=== PATIENT | female | born 1985 | race Caucasian/White ===

== ENCOUNTER 2017-09-17 19:27 | Emergency (ER) | payer OTHER ==
[~2017-09-17] VITALS: Ht 162.6 cm; Wt 54.4 kg
[~2017-09-17 19:27] MED LIST: ACET325; ALBU4 PO; ALBU90OI; ALBUTEROL; AMYLIPPRO; ASCO500; ATEN25 PO; AZIT250 PO; AZIT500 PO; Bacid1 EACH PO; Biotin1 MG PO; CALCA500CH PO; CALCIUM; CALCIUM + VIT1 EACH PO; CAYSTON75 MG/1 ML IH; CLEOCIN; CYAN500 PO; CYCL10 PO; Cellcept500 MG PO; DOC250 PO; DOCU100 PO; DORN1IH; DORN1IH IH; DORN1IH INH; DOXY100 PO; ERGO50000 PO; FERR325 PO; FLUC200 PO; FLUSAL1005; FLUSAL5005; FLUSAL5005 IH; FOLI1 PO; FOLIC ACID PO; Golytely Packe1 EACH PO; HYPERTONIC SALINE; IBUP400 PO; INSLI100I; INSLI75/25 SC; KETO10 PO; LAVAP17G PT; LEVFLO500; LINE600 PO; LORA10 PO; LORA10ER; MAGNESIUM250 MG PO; MAGOXI400 PO; MELA3; MELA3 PO; METO25 PO; MICO100S TOP; MIRALAX; MOMENI; MUPI2TC; MYCO250 PO; OMEP20ER PO; OMEPRAZOLE MAGN20 MG; ONDA4; OXYC15ER PO; One Daily1 EAC3 PO; PANT20; PANT40 PO; PRED10 PO; PROM25 PO; Prozac20 MG PO; Prozac40 MG PO; SIME80CH PO; SODCHL.65S; SODCHL2SO INH; SULTRIDS; SULTRISS PO; TACR1 PO; THIA100 PO; TOBI; TOCO400 PO; VALGANCICLOVIR450 MG PO; VANCOMYCIN IV; VIOKACE 20,8801 EACH; Ventolin Sy2 MG/5 ML IH; Vitamin B Comple1 EA; XYZAL; XYZAL5 MG PO; ZENPEP; ZENPEP DR 20,01 EACH PO; ZINC; ZINC220 PO; ZOLP5 PO; Zofran Odt4 MG SL; [UNRECOGNIZED DRUG - OTHER]; [UNRECOGNIZED DRUG - OTHER]; [UNRECOGNIZED DRUG - OTHER]; [UNRECOGNIZED DRUG - OTHER]; [UNRECOGNIZED DRUG - OTHER]
== END 2017-09-17 21:03 | disposition home or self-care (01) ==
LOC: ER 19:27
DX: Z01.810 Encounter for preprocedural cardiovascular examination (principal); Z88.0 Allergy status to penicillin; Z88.8 Allergy status to other drugs, medicaments and biological substances; Z79.899 Other long term (current) drug therapy; Z79.52 Long term (current) use of systemic steroids; Z79.2 Long term (current) use of antibiotics; E11.9 Type 2 diabetes mellitus without complications
CPT/HCPCS: 93005; 93010; 99283

== ENCOUNTER 2017-09-18 07:00 | Day surgery (SDC) | payer OTHER ==
[~2017-09-18] VITALS: Ht 162.6 cm; Wt 63.4 kg
== END 2017-09-18 12:10 | disposition home or self-care (01) ==
LOC: ORSCSDS 07:00
PROVIDERS: Otolaryngology
PROC: 09CW8ZZ Extirpation of Matter from Right Sphenoid Sinus, Via Natural or Artificial Opening Endoscopic (ICD-10-PCS; principal; 2017-09-18 08:15)
PROC: 8E09XBZ Computer Assisted Procedure of Head and Neck Region (ICD-10-PCS; principal; 2017-09-18 08:15)
PROC: 09BT8ZZ Excision of Left Frontal Sinus, Via Natural or Artificial Opening Endoscopic (ICD-10-PCS; principal; 2017-09-18 08:15)
DX: J32.1 Chronic frontal sinusitis (principal); E84.0 Cystic fibrosis with pulmonary manifestations; K86.89 Other specified diseases of pancreas; K21.9 Gastro-esophageal reflux disease without esophagitis; F32.9 Major depressive disorder, single episode, unspecified; Z79.899 Other long term (current) drug therapy; Z79.4 Long term (current) use of insulin
CPT/HCPCS: 87070; 87075; 87102; 87106; 87147; 87205; C2625; J0330; J1100; J2250; J2370; J2405; J3010; J3301; J7120

== ENCOUNTER → 2017-12-04 | Outpatient (CLI) | payer OTHER ==
[~2017-12-04] MED LIST changes: +Pravachol20 MG PO; +SIRO1 PO; +ZOLP10 PO
== END | disposition home or self-care (01) ==
LOC: LAB SHORT 16:55 → LAB 16:55 → LAB FUT 12-04 15:00 → EDSTATUS 12-04 15:00
DX: R05 Cough (principal)
CPT/HCPCS: 87252; 87254

== ENCOUNTER 2018-04-24 23:58 | Emergency (ER) | payer OTHER ==
[~2018-04-24] VITALS: Ht 162.6 cm; Wt 64.4 kg
[~2018-04-24 23:58] MED LIST changes: -Pravachol20 MG PO; -SIRO1 PO; -ZOLP10 PO
[2018-04-25] MEDS ORDERED: ZENPEP DR 20,01 EACH PO (01:26)
[2018-04-25] MEDS ORDERED: TACR1 PO (01:27)
[2018-04-25] MEDS ORDERED: Pantoprazole So40 MG PO (01:27)
[2018-04-25] MEDS ORDERED: PRED10 PO (01:27)
[2018-04-25] MEDS ORDERED: MYCO250 PO (01:27)
[2018-04-25] MEDS ORDERED: ZOLP10 PO (01:28)
[2018-04-25] MEDS ORDERED: Prozac20 MG PO (01:28)
[2018-04-25] MEDS ORDERED: SIRO1 PO (01:28)
[2018-04-25] MEDS ORDERED: Pravachol20 MG PO (01:28)
[2018-04-25] MEDS ORDERED: Ativan1 MG PO (03:17)
== END 2018-04-25 06:00 | disposition home or self-care (01) ==
LOC: ER 23:58
DX: L50.0 Allergic urticaria (principal); Z88.0 Allergy status to penicillin; Z88.8 Allergy status to other drugs, medicaments and biological substances; Z91.018 Allergy to other foods; Z79.899 Other long term (current) drug therapy; Z79.52 Long term (current) use of systemic steroids; E11.9 Type 2 diabetes mellitus without complications
CPT/HCPCS: 36415; 96361; 96374; 96375; 96376; 99282-25; J2405; J3490; J7030; Q0163

== ENCOUNTER → 2018-06-08 | Outpatient (CLI) | payer OTHER ==
[~2018-06-08] MED LIST changes: +Ativan1 MG PO; +Pantoprazole So40 MG PO; +Pravachol20 MG PO; +SIRO1 PO; +ZOLP10 PO
== END | disposition home or self-care (01) ==
LOC: PLD 15:51 → LAB SHORT 15:51
DX: D48.5 Neoplasm of uncertain behavior of skin (principal)
CPT/HCPCS: 88305

== ENCOUNTER → 2018-07-05 | Outpatient (CLI) | payer OTHER | END | disposition home or self-care (01) | LOC: LAB SHORT 11:02 → PLD 11:02 | DX: L98.2 Febrile neutrophilic dermatosis [Sweet] (principal); L73.8 Other specified follicular disorders; M54.06 Panniculitis affecting regions of neck and back, lumbar region; L52 Erythema nodosum | CPT/HCPCS: 88305 ==

== ENCOUNTER → 2018-07-05 | Outpatient (CLI) | payer OTHER | END | disposition home or self-care (01) | LOC: LAB 16:26 → LAB SHORT 16:26 | DX: A49.9 Bacterial infection, unspecified (principal) | CPT/HCPCS: 87081 ==

== ENCOUNTER 2018-11-26 06:18 | Day surgery (SDC) | payer OTHER ==
[~2018-11-26] VITALS: Ht 162.6 cm; Wt 68.4 kg
[~2018-11-26 06:18] MED LIST changes: +INSULANPEN SC
[2018-11-26] MEDS ORDERED: DAPS100 PO (07:08)
[2018-11-26] MEDS ORDERED: INSULANPEN SC (07:08)
[2018-11-26] MEDS ORDERED: MYCO250 PO (07:11)
[2018-11-26] MEDS ORDERED: PRED5 PO (07:12)
[2018-11-26] MEDS ORDERED: AZIT250 PO (07:12)
[2018-11-26] MEDS ORDERED: PRAV20 PO (07:12)
[2018-11-26] MEDS ORDERED: HEALTHYLAX17 GM PO (07:13)
[2018-11-26] MEDS ORDERED: MAGOXI400 PO (07:16)
[2018-11-26] MEDS ORDERED: 24HR ALLERGY REL5 MG PO (07:17)
[2018-11-26] MEDS ORDERED: ZENPEP DR 20,01 EACH PO (07:18)
[2018-11-26] MEDS ORDERED: BIOTIN5000 MCG PO (07:22)
[2018-11-26] MEDS ORDERED: ERGO400 PO (07:22)
[2018-11-26] MEDS ORDERED: DOC250 PO (07:25)
[2018-11-26] MEDS ORDERED: TUMS500 MG PO (07:25)
--- NOTE | 2018-11-26 07:27 | NUR ---
11/26/18 0727 Virginia Webb V 1 FAILED IV IN L HAND, 1 FAILED IV IN L FOREARM, 1 FAILED IV IN R HAND.
--- NOTE | 2018-11-26 09:29 | NUR ---
11/26/18 0929 Amparo Singh PATIENT STATES PAIN IS NOW A 5/10 WILL MEDICATED PER ORDERS SEE VS RECORD.
== END 2018-11-26 10:13 | disposition home or self-care (01) ==
LOC: ORSCSDS 06:18
PROVIDERS: Otolaryngology
PROC: 09DU4ZZ Extraction of Right Ethmoid Sinus, Percutaneous Endoscopic Approach (ICD-10-PCS; principal; 2018-11-26 07:30)
PROC: 8E09XBZ Computer Assisted Procedure of Head and Neck Region (ICD-10-PCS; principal; 2018-11-26 07:30)
PROC: 09DV4ZZ Extraction of Left Ethmoid Sinus, Percutaneous Endoscopic Approach (ICD-10-PCS; principal; 2018-11-26 07:30)
DX: J32.8 Other chronic sinusitis (principal); Z94.2 Lung transplant status; E84.0 Cystic fibrosis with pulmonary manifestations; E11.9 Type 2 diabetes mellitus without complications; Z79.899 Other long term (current) drug therapy
CPT/HCPCS: 82947; 87070; 87075; 87205; C2625; J1100; J2250; J2405; J2704; J2710; J3010; J3301; J7120

== ENCOUNTER → 2019-03-29 | Outpatient (CLI) | payer OTHER ==
[~2019-03-29] MED LIST changes: +24HR ALLERGY REL5 MG PO; +BIOTIN5000 MCG PO; +DAPS100 PO; +ERGO400 PO; +HEALTHYLAX17 GM PO; +PRAV20 PO; +PRED5 PO; +TUMS500 MG PO
[2019-03-29 14:06] LABS: Calcium, Urine 7.5 mg/dL (< 17.5); Calcium, Urine Calculation 97.5 mg/24hrs (42.0-353.0)
[2019-03-29 17:42] LABS: Creatinine Urine 92.9 mg/dL (27.00-270.00)
== END ==
LOC: LAB SHORT 11:08 → LAB 11:08
PROVIDERS: Internal Medicine Endocrinology, Diabetes & Metabolism
DX: K90.49 Malabsorption due to intolerance, not elsewhere classified (principal); E83.51 Hypocalcemia
CPT/HCPCS: 81050; 82340; 82570

== ENCOUNTER → 2019-06-13 | Outpatient (CLI) | payer OTHER ==
[2019-06-15 14:07] LABS: HPV 16 Negative (Negative); HPV 18 Negative (Negative); HPV OTHER HR TYPES Positive (Negative)
== END | disposition home or self-care (01) ==
LOC: LAB SHORT 15:54 → LAB 15:54
PROVIDERS: Nurse Practitioner Women's Health
DX: Z12.4 Encounter for screening for malignant neoplasm of cervix (principal)
CPT/HCPCS: 87624; 87625; G0123

== ENCOUNTER 2020-04-24 11:08 | Emergency (ER) | payer OTHER ==
[~2020-04-24] VITALS: Ht 162.6 cm; Wt 62.1 kg
[2020-04-24] MEDS ORDERED: Norco 5-325 Ta1 EACH PO (13:43)
[2020-04-24] MEDS ORDERED: IBUP600 PO (13:43)
[2020-04-24] MEDS ORDERED: Deltasone 10 mg10 MG PO (13:43)
== END 2020-04-24 16:00 | disposition home or self-care (01) ==
LOC: ER 11:08
DX: M54.41 Lumbago with sciatica, right side (principal); E11.9 Type 2 diabetes mellitus without complications; Z97.5 Presence of (intrauterine) contraceptive device; Z88.0 Allergy status to penicillin; Z88.2 Allergy status to sulfonamides; Z88.1 Allergy status to other antibiotic agents; Z91.02 Food additives allergy status; Z91.018 Allergy to other foods; Z79.52 Long term (current) use of systemic steroids; Z79.899 Other long term (current) drug therapy; Z79.4 Long term (current) use of insulin
CPT/HCPCS: 72148; 96374; 96375; 99283-25; J1170; J1885; J2405

== ENCOUNTER 2021-01-10 11:39 | Emergency (ER) | payer OTHER ==
[~2021-01-10] VITALS: Ht 162.6 cm; Wt 61.2 kg
[~2021-01-10 11:39] MED LIST changes: +Deltasone 10 mg10 MG PO; +IBUP600 PO; +Norco 5-325 Ta1 EACH PO
== END 2021-01-10 15:20 | disposition home or self-care (01) ==
LOC: ER 11:39
DX: K62.89 Other specified diseases of anus and rectum (principal); Z79.899 Other long term (current) drug therapy; Z88.0 Allergy status to penicillin; Z88.2 Allergy status to sulfonamides; Z88.1 Allergy status to other antibiotic agents
CPT/HCPCS: 99282

== ENCOUNTER → 2021-05-22 | Outpatient (CLI) | payer OTHER | END | disposition home or self-care (01) | LOC: LAB SHORT 11:50 | DX: R21 Rash and other nonspecific skin eruption (principal) | CPT/HCPCS: 87070; 87081; 87205 ==

== ENCOUNTER 2022-06-26 14:48 | Day surgery (SDC) | payer OTHER | END 2022-06-26 16:05 | disposition home or self-care (01) | LOC: ATC 14:48 | DX: T86.819 Unspecified complication of lung transplant (principal); Z94.2 Lung transplant status; F32.A Depression, unspecified; F41.9 Anxiety disorder, unspecified; K21.9 Gastro-esophageal reflux disease without esophagitis; Z88.0 Allergy status to penicillin; Z88.1 Allergy status to other antibiotic agents; Z88.2 Allergy status to sulfonamides; N17.9 Acute kidney failure, unspecified | CPT/HCPCS: 96365; J2930 ==

== ENCOUNTER 2022-06-27 15:11 | Day surgery (SDC) | payer OTHER | END 2022-06-27 15:56 | disposition home or self-care (01) | LOC: ATC 15:11 | DX: T86.819 Unspecified complication of lung transplant (principal); Z94.2 Lung transplant status; F32.A Depression, unspecified; F41.9 Anxiety disorder, unspecified; K21.9 Gastro-esophageal reflux disease without esophagitis; Z88.0 Allergy status to penicillin; Z88.1 Allergy status to other antibiotic agents; N17.9 Acute kidney failure, unspecified | CPT/HCPCS: 96365; J2930 ==

== ENCOUNTER 2022-06-28 00:59 | Day surgery (SDC) | payer OTHER | END 2022-06-28 09:32 | disposition home or self-care (01) | LOC: ATC 00:59 | DX: T86.818 Other complications of lung transplant (principal); D84.9 Immunodeficiency, unspecified; Z94.2 Lung transplant status; Z88.1 Allergy status to other antibiotic agents; Z88.0 Allergy status to penicillin; Z88.2 Allergy status to sulfonamides; Z91.018 Allergy to other foods | CPT/HCPCS: 96365; J2930 ==

== ENCOUNTER → 2022-08-27 | Outpatient (CLI) | payer OTHER ==
[2022-08-27 19:26] LABS: Influenza A, PCR NEGATIVE (NEGATIVE); Influenza B, PCR NEGATIVE (NEGATIVE); Resp Syncytial Virus, PCR NEGATIVE (NEGATIVE); SARS-Cov-2 (COVID-19) PCR, MMC NEGATIVE (NEGATIVE)
== END | disposition home or self-care (01) ==
LOC: LAB SHORT 16:00
PROVIDERS: Nurse Practitioner Family
DX: E84.9 Cystic fibrosis, unspecified (principal); R05.9 Cough, unspecified
CPT/HCPCS: 0241U

== ENCOUNTER 2022-10-06 15:32 | Inpatient (IN) | payer OTHER ==
[~2022-10-06] VITALS: Ht 162.6 cm; Wt 65.7 kg
[2022-10-06 16:34] LABS: BASOPHILS ABSOLUTE AUTO 0.03 K/mm3 (0.00-0.23); BASOPHILS PERCENT AUTO 0 % (0-2); EOSINOPHILS ABSOLUTE AUTO 0.02 K/mm3 (0.00-0.68); EOSINOPHILS PERCENT AUTO 0 % (0-6); Hematocrit 33.8 % (33.0-51.0); Hemoglobin 10.9 g/dL (11.5-16.0); IMMATURE GRAN PERCENT AUTO 1 % (0-1); LYMPHOCYTES PERCENT AUTO 2 % (21-46); MONOCYTES ABSOLUTE AUTO 0.62 K/mm3 (0.16-1.47); MONOCYTES PERCENT AUTO 3 % (4-13); Mean Corpuscular HGB 28.7 pg (26.0-34.0); Mean Corpuscular HGB Conc 32.2 g/dL (31.5-36.5); Mean Corpuscular Volume 89 fL (80-100); Mean Platelet Volume 10.3 fL (9.1-12.4); NEUTROPHILS ABSOLUTE AUTO 17.05 K/mm3 (1.96-9.15); NEUTROPHILS PERCENT AUTO 94 % (41-73); Platelet Count 280 K/mm3 (150-400); RDW Coefficient Variation 14.4 % (11.7-14.2); RDW Standard Deviation 46.4 fL (35.1-46.3); White Blood Cell Count 18.22 K/mm3 (4.00-11.30)
[2022-10-06 16:47] LABS: Albumin/Globulin Ratio 0.7 (0.8-1.8); Bilirubin, Total 0.4 mg/dL (0.1-1.0); Bun/Creatinine Ratio 19.1 (12.0-20.0); Calcium, Blood 9.1 mg/dL (8.5-10.1); Creatinine, Blood 1.31 mg/dL (0.40-1.00); Globulin, Blood 4.3 g/dL (2.2-4.0); Potassium, Blood 4.4 mmol/L (3.5-5.5); Total Protein, Blood 7.3 g/dL (6.4-8.2)
[2022-10-06] MEDS ORDERED: ALPR.25 PO (21:38)
[2022-10-06] MEDS ORDERED: MELATONIN5 M1 PO (21:40)
[2022-10-06] MEDS ORDERED: MIRT15 PO (21:41)
[2022-10-06] MEDS ORDERED: FAMO20 (21:47)
[2022-10-06] MEDS ORDERED: PRAZ5 PO (21:48)
[2022-10-06] MEDS ORDERED: DAPS100 PO (21:48)
[2022-10-06] MEDS ORDERED: INSULANI SC (21:49)
[2022-10-06] MEDS ORDERED: MONT10T PO (22:03)
--- NOTE | 2022-10-07 00:28 | NUR ---
PT ARRIVED TO FLOOR AT 2029, SATS 90% ON 8L OXYMIZER, RESP RATE 20. IV IN L AC INFILTRATED. MEDICAL CHARGE ABLE TO GET R ARM 20 G WITH ULTRA SOUND. IV FLUIDS TKO AND REMDESIVIR INFUSING. PATIENT LUNGS SOUNDS DIM IN UPPER LOBES AND FINE CRACKLES IN LEFT LOWER LOBE. PATIENT BECAME SLEEPY AND DOZED OFF WHILE TALKING WITH THIS RN, DATS STARTED TO DROP TO 84% O2 UP TO 14L OXYMIZER. RT CALLED, HIGH FLOW INITIATED, AND ALBUTEROL TREATMENT ADMINISTERED. SATS BACK UP TO 89-90% ON 40L AND 60% HIGH FLOW. RT CURRENTLY IN ROOM TO ADJUST SETTINGS NEEDED. PATIENT RESP RATE 25/MIN AT THIS TIME. CONT. PULSE OX IS ON. PATIENT IS SLEEPING BUT AROUSABLE. WILL CONTINUE TO MONITOR AND TREAT PER ORDERS.
--- NOTE | 2022-10-07 00:38 | NUR ---
SPO2 AT 92%, HIGH FLOW SETTINGS ARE AT 45L AND 58%
[2022-10-07 04:32] LABS: BASOPHILS ABSOLUTE AUTO 0.02 K/mm3 (0.00-0.23); BASOPHILS PERCENT AUTO 0 % (0-2); EOSINOPHILS PERCENT AUTO 0 % (0-6); Hematocrit 31.7 % (33.0-51.0); Hemoglobin 10.4 g/dL (11.5-16.0); IMMATURE GRAN ABSOLUTE AUTO 0.13 K/mm3 (0.00-0.10); IMMATURE GRAN PERCENT AUTO 1 % (0-1); LYMPHOCYTES ABSOLUTE AUTO 1.31 K/mm3 (0.84-5.20); LYMPHOCYTES PERCENT AUTO 8 % (21-46); MONOCYTES ABSOLUTE AUTO 0.62 K/mm3 (0.16-1.47); MONOCYTES PERCENT AUTO 4 % (4-13); Mean Corpuscular HGB 28.3 pg (26.0-34.0); Mean Corpuscular HGB Conc 32.8 g/dL (31.5-36.5); Mean Corpuscular Volume 86 fL (80-100); Mean Platelet Volume 10.3 fL (9.1-12.4); NEUTROPHILS ABSOLUTE AUTO 15.36 K/mm3 (1.96-9.15); NEUTROPHILS PERCENT AUTO 88 % (41-73); Platelet Count 275 K/mm3 (150-400); RDW Coefficient Variation 14.2 % (11.7-14.2); RDW Standard Deviation 45.1 fL (35.1-46.3); Red Blood Cell Count 3.67 M/mm3 (3.80-5.20); White Blood Cell Count 17.44 K/mm3 (4.00-11.30)
[2022-10-07 04:56] LABS: Magnesium, Blood 2.3 mg/dL (1.6-2.4)
--- NOTE | 2022-10-07 06:31 | NUR ---
SPO2 DROPPED TO 84% AND SUSTAINED. RT IN TO TITRATE TO 50L AND 65% FIO2 SATS BACK TO 92%. PATIENT IS SLEEPY BUT AROUSABLE. HAS PERSISTENT DRY COUGH. DIMINISHED LUNG SOUNDS BILAT. RESP RATE AT 26. CONT. PULSE OX IN PLACE. WILL REPORT TO DAY RN.
[2022-10-07 06:47] LABS: Albumin, Blood 2.5 g/dL (3.4-5.0); Anion Gap 9 mmol/L (6-16); Blood Urea Nitrogen 31 mg/dL (8-24); Bun/Creatinine Ratio 24.4 (12.0-20.0); CO2, Blood 15 mmol/L (21-32); Calcium, Blood 8.4 mg/dL (8.5-10.1); Chloride, Blood 114 mmol/L (98-108); Creatinine, Blood 1.27 mg/dL (0.40-1.00); Glomerular Filtration Rate 55 (60-); Glucose, Blood 253 mg/dL (70-99); Phosphorus, Blood 2.9 mg/dL (2.5-4.9); Potassium, Blood 4.7 mmol/L (3.5-5.5); Sodium, Blood 138 mmol/L (136-145)
[2022-10-07] MEDS ORDERED: MULTIPLE VITAM1 EACH PO (10:13)
[2022-10-07] MEDS ORDERED: B COMPLEX FORM0.4 MG PO (10:14)
[2022-10-07] MEDS ORDERED: Diflucan100 MG PO (10:28)
--- NOTE | 2022-10-07 10:59 | NUR ---
PT COUGHED UP SMALL AMOUNT PINK TINGED SPUTUM.
--- NOTE | 2022-10-07 13:39 | NUR ---
PT TO CT. PLACED ON 15L NONREBREATHER PER RT INSTRUCTION.
--- NOTE | 2022-10-07 14:04 | NUR ---
PT BACK TO ROOM FROM CT PLACED BACK ON HHNC AT 50L/65%. 02 SATS 95%.
--- NOTE | 2022-10-07 14:10 | NUR ---
PT'S INSULIN MONITOR SHOWING PT'S CBG INCREASED TO 337 PT HAD LUNCHTIME CBG OF 190 AND ADMINISTERED OWN 5 UNITS INSULIN. DISCUSSED WITH DR CARLSON, ORDERS OBTAINED TO CHANGE SS TO HIGH. DR CARLSON WANTS STAFF TO MANAGE CBG, NOT ALLOW PT TO ADMINISTER OWN INSULIN. ADVISED PT WHO VERBALIZED UNDERSTANDING.
--- NOTE | 2022-10-07 15:05 | NUR ---
DR CARLSON IN TO SEE PT PLAN TO TRANSFER PT TO PCU.
[2022-10-07 16:10] LABS: Bun/Creatinine Ratio 28.1 (12.0-20.0); Calcium, Blood 8.6 mg/dL (8.5-10.1); Creatinine, Blood 1.14 mg/dL (0.40-1.00); Potassium, Blood 4.4 mmol/L (3.5-5.5)
--- NOTE | 2022-10-07 16:31 | NUR ---
REPORT GIVEN TO NEREYDA Cason RN AND PT TRANSFERRED TO PCU.
--- NOTE | 2022-10-07 16:35 | NUR ---
TRANSFER: Report recieved from [facility] Surg Floor RN, Patient arrived to PCU 08, she is COVID positive and on AIRVO, 50L 45%, Biox is in the mid to low 90s. She is alert and oriented, denies pain at this time. VSS. She is very SOB with exertion, saturations dropping with activity-it takes her a couple of minutes to recover. Hosp already talked with Director Hardware, Dr. Soriano has no new orders. Call light in reach, will continue to monitor.
--- NOTE | 2022-10-07 18:28 | NUR ---
Summary: Patient was transferred over to PCU 8 this afternoon for closer observation. She is alert and oriented, slightly anxious at times. HRR, SR in the 80s. LS with some crackles in the bases, patient is on AIRVO 50L 45% saturations in the low to mid 90s initially, I had to turn the FIO2 up to 73% after she got up to the bedside commode. She had a chest CT this shift that showed some fluid overload, she was given a one time dose of Lasix. BT+, she is on a gluten free diet due to celiac disease. VSS. Pulmonology consult done via MD. Patient denies other needs at this time. Call light in reach.
[2022-10-07] MEDS ORDERED: TRIKAFTA 100/51 EACH PO ×2 (21:49→21:51)
[2022-10-08 04:35] LABS: BASOPHILS ABSOLUTE AUTO 0.03 K/mm3 (0.00-0.23); BASOPHILS PERCENT AUTO 0 % (0-2); EOSINOPHILS ABSOLUTE AUTO 0.04 K/mm3 (0.00-0.68); EOSINOPHILS PERCENT AUTO 0 % (0-6); Hematocrit 28.1 % (33.0-51.0); Hemoglobin 9.3 g/dL (11.5-16.0); IMMATURE GRAN ABSOLUTE AUTO 0.15 K/mm3 (0.00-0.10); IMMATURE GRAN PERCENT AUTO 1 % (0-1); LYMPHOCYTES ABSOLUTE AUTO 2.55 K/mm3 (0.84-5.20); LYMPHOCYTES PERCENT AUTO 13 % (21-46); MONOCYTES PERCENT AUTO 4 % (4-13); Mean Corpuscular HGB 28.4 pg (26.0-34.0); Mean Corpuscular HGB Conc 33.1 g/dL (31.5-36.5); Mean Corpuscular Volume 86 fL (80-100); Mean Platelet Volume 10.2 fL (9.1-12.4); NEUTROPHILS ABSOLUTE AUTO 16.76 K/mm3 (1.96-9.15); NEUTROPHILS PERCENT AUTO 82 % (41-73); NRBC ABSOLUTE 0.02 K/mm3 (0.00-0.02); NRBC Auto 0.1 /100 WBC (0.0-0.2); Platelet Count 231 K/mm3 (150-400); RDW Coefficient Variation 14.4 % (11.7-14.2); Red Blood Cell Count 3.28 M/mm3 (3.80-5.20); White Blood Cell Count 20.43 K/mm3 (4.00-11.30)
[2022-10-08 04:54] LABS: Bun/Creatinine Ratio 26.2 (12.0-20.0); Calcium, Blood 7.8 mg/dL (8.5-10.1); Creatinine, Blood 1.26 mg/dL (0.40-1.00); Potassium, Blood 3.4 mmol/L (3.5-5.5)
--- NOTE | 2022-10-08 06:55 | NUR ---
SHIFT SUMMARY OVERNIGHT, PATIENT ORIENTED X4. VERY ANXIOUS, REQUIRING PRN XANAX AND HYDROXYZINE OVERNIGHT. PATIENT OFTEN CALLS STAFF IN TEARS; SHE REPORTS BEING FEARFUL THAT ONCE SHE FALLS ASLEEP, SHE WILL WAKE UP INTUBATED. ATTEMPTED TO PROVIDE REASSURANCE TO PATIENT AND KEEP HER CALM, HER ANXIETY OFTEN WORSENED HER HYPOXIA. CURRENTLY, PATIENT ON AIRVO, 50L AND 85% FIO2. PATIENT DESATS WITH VERY MINIMAL MOVEMENT AND OFTEN TAKES SEVERAL MINUTES TO RECOVER. TELEMETRY SHOWING SR/ST, HR 80-110S WITH EXERTION OR ANXIETY. SBP 90-110S. UP TO VOID MULTIPLE TIMES OVERNIGHT TO BSC. NO BM. WILL CONITINUE TO MONITOR.
[2022-10-08 11:53] LABS: Albumin, Blood 2.4 g/dL (3.4-5.0); Albumin/Globulin Ratio 0.6 (0.8-1.8); Bilirubin, Direct 0.1 mg/dL (0.0-0.3); Bilirubin, Indirect 0.3 mg/dL (0.1-0.7); Bilirubin, Total 0.4 mg/dL (0.1-1.0); Total Protein, Blood 6.4 g/dL (6.4-8.2)
--- NOTE | 2022-10-08 18:21 | NUR ---
SHIFT SUMMARY PT A/0 X4, PLEASANT AND COOPERATIVE WITH CARE. PT REMAINS ON AIRVO AT 50LPM AND 85-90% FIO2. CRACKLES NOTED IN LOWER LOBES. PT DESATING TO LOW 80'S WHEN FALLING ASLEEP. PT PLACED ON NON-REBREATHER ON TOP OF AIRVO TO MAINTAIN SATS WHILE SLEEPING. PT SR/ST, HR 90-110'S. PT DENIES ANY ANGINA. PT ANXIETY IMPROVED. PT DENIED NEED FOR PRN ATIVAN THIS SHIFT. PT STARTED ON BARICTINIB AND LEVAQUIN TODAY. PHARMACY, DR CARLSNO AND DR GERARD CONSULTED ON THIS. PT IN AGREEANCE. PT ABLE TO GET UP TO BSC WITH SBA. PT DYSPNEIC WITH ANY EXERTION AT ALL. WILL CONTINUE TO CARE FOR PT AND REPORT TO ONCOMING RN.
--- NOTE | 2022-10-09 06:26 | NUR ---
SHIFT SUMMARY NO ACUTE CHANGES. REMAINED ON AIRVO 50L/93% FIO2 T/O NOC. ALSO PLACED A 15L NRB OVER THE AIRVO WHILE PT SLEEPING D/T DESATURATIONS DOWN TO 83-85%. CONTINUES TO BE SOB WITH EXERTION. OCCASIONAL NPC. PT SLEPT WELL. MEDICATED WITH NORCO 1 TABLET PO FOR C/O BILATERAL FOOT PAIN. VSS. AFEBRILE. UP TO BSC WITHOUT ASSIST- TOLERATED WELL. WILL REPORT TO ONCOMING RN WHEN AVAILABLE.
[2022-10-09 08:31] LABS: BASOPHILS ABSOLUTE AUTO 0.03 K/mm3 (0.00-0.23); BASOPHILS PERCENT AUTO 0 % (0-2); EOSINOPHILS ABSOLUTE AUTO 0.22 K/mm3 (0.00-0.68); EOSINOPHILS PERCENT AUTO 1 % (0-6); Hematocrit 33.6 % (33.0-51.0); Hemoglobin 10.2 g/dL (11.5-16.0); IMMATURE GRAN ABSOLUTE AUTO 0.17 K/mm3 (0.00-0.10); IMMATURE GRAN PERCENT AUTO 1 % (0-1); LYMPHOCYTES ABSOLUTE AUTO 3.12 K/mm3 (0.84-5.20); LYMPHOCYTES PERCENT AUTO 18 % (21-46); MONOCYTES ABSOLUTE AUTO 0.94 K/mm3 (0.16-1.47); MONOCYTES PERCENT AUTO 5 % (4-13); Mean Corpuscular HGB 28.1 pg (26.0-34.0); Mean Corpuscular HGB Conc 30.4 g/dL (31.5-36.5); Mean Platelet Volume 10.2 fL (9.1-12.4); NEUTROPHILS ABSOLUTE AUTO 13.22 K/mm3 (1.96-9.15); NEUTROPHILS PERCENT AUTO 75 % (41-73); Platelet Count 149 K/mm3 (150-400); RDW Coefficient Variation 14.6 % (11.7-14.2); RDW Standard Deviation 49.5 fL (35.1-46.3); Red Blood Cell Count 3.63 M/mm3 (3.80-5.20)
[2022-10-09 08:35] LABS: Mean Corpuscular Volume 93 fL (80-100)
[2022-10-09 12:35] LABS: Calcium, Blood 8.8 mg/dL (8.5-10.1); Creatinine, Blood 1.4 mg/dL (0.40-1.00); Potassium, Blood 4.5 mmol/L (3.5-5.5)
--- NOTE | 2022-10-09 18:42 | NUR ---
SHIFT SUMMARY PT REMAINS A/O X4. SR/ST WITH RATE IN 90-110'S. PT ON AIRVO AT 50LPM AND 80% FIO2. PT TOLERATING WELL WHEN AWAKE, BUT PATIENT IS DESATURATING WHEN SLEEPING. PT USING NON-REBREATHER AT 15LPM OVER AIRVO WHEN SLEEPING TO MAINTAIN SPO2 >90%. PT WAS ACCEPTED AT THE [facility] FOR TRANSFER. DR COTA SPOKE TO THE PATIENT AND SHE WAS IN AGREEANCE OF THE TRANSFER. PT WILL TRANSFER ONCE BED IS AVAILABLE DUE TO HX OF DOUBLE LUNG TRANSPLANT. NO OTHER ACUTE CHANGES. WILL CONTINUE TO CARE FOR PT AND REPORT TO ONCOMING RN.
--- NOTE | 2022-10-10 05:24 | NUR ---
SHIFT SUMMARY NO ACUE CHANGES THIS SHIFT. AXO. INDEPENDENT BUT CALLS STAFF TO ROOM WHEN NEEDING TO GET UP DUE TO EXERTIONAL DYSPNEA. STARTED SHIFT WIT ARIVO 50L 80%, PT FELL ASLEEP, PLACED NRB 15L OVER TOP HAS BEEN THE NORMAL ON NOCS WHILE SLEEPING. PT WAS TOLERATING THIS WELL, BUT FIO2 HAD TO BE INCREASED TO 90%. AT THIS POINT, SPO2 WOULD NOT MAINTAIN >86%. PT ASKED TO PRONE AT THIS POINT. PT HAS PRONED SINCE THIS EVENT AND HAS EMAINED >94% WITH THE FIO2 BEING TITRATED BACK DOWN TO 80%. REMAINS IN SR. AND OTHERWISE HAS RESTED THIS SHIFT.
[2022-10-10 06:14] LABS: BASOPHILS ABSOLUTE AUTO 0.02 K/mm3 (0.00-0.23); BASOPHILS PERCENT AUTO 0 % (0-2); EOSINOPHILS ABSOLUTE AUTO 0.25 K/mm3 (0.00-0.68); EOSINOPHILS PERCENT AUTO 2 % (0-6); Hematocrit 28.7 % (33.0-51.0); Hemoglobin 9.4 g/dL (11.5-16.0); IMMATURE GRAN ABSOLUTE AUTO 0.26 K/mm3 (0.00-0.10); IMMATURE GRAN PERCENT AUTO 2 % (0-1); LYMPHOCYTES ABSOLUTE AUTO 2.82 K/mm3 (0.84-5.20); LYMPHOCYTES PERCENT AUTO 17 % (21-46); MONOCYTES ABSOLUTE AUTO 0.83 K/mm3 (0.16-1.47); MONOCYTES PERCENT AUTO 5 % (4-13); Mean Corpuscular HGB 28.1 pg (26.0-34.0); Mean Corpuscular HGB Conc 32.8 g/dL (31.5-36.5); Mean Platelet Volume 10.6 fL (9.1-12.4); NEUTROPHILS ABSOLUTE AUTO 12.41 K/mm3 (1.96-9.15); NEUTROPHILS PERCENT AUTO 75 % (41-73); Platelet Count 137 K/mm3 (150-400); RDW Coefficient Variation 14.5 % (11.7-14.2); RDW Standard Deviation 45.5 fL (35.1-46.3); Red Blood Cell Count 3.34 M/mm3 (3.80-5.20); White Blood Cell Count 16.59 K/mm3 (4.00-11.30)
[2022-10-10 06:42] LABS: Bun/Creatinine Ratio 27.9 (12.0-20.0); Calcium, Blood 8.7 mg/dL (8.5-10.1); Creatinine, Blood 1.65 mg/dL (0.40-1.00)
[2022-10-10 06:43] LABS: Mean Corpuscular Volume 86 fL (80-100)
--- NOTE | 2022-10-10 18:36 | NUR ---
PT AWARE THAT SHE REMAINS ON WAIT LIST TO TRANSFER [facility] TO [facility] TO BE IN THE CARE OF THE SURGEON THAT PERFORMED HER LUNG TRANSPLANT. PT'S O2 NEEDS HAVE REMAINED PRE CONSTANT T/O THE DAY. PT REPORTS THAT WORK OF BREATHING HAS IMPROVED. ANXIETY HAS LESSENED. SR NOTED. SHE DOES REPORT SOME INTERMITTENT NAUSEA T/O THE DAY THAT WAS TREATED WITH PHENERGAN. PT WAS ABLE TO GET UP BEDSIDE CHAIR TODAY TO EAT HER LUNCH WHICH WAS TOELRATED WELL, SHE WAS ALSO ABLE TO PARTICIPATE IN HER BED BATH WHICH MADE HER TIRED BUT SHE WAS ABLE TO RECOVER WELL. VSS OTHERWISE. PT'S IV WAS CHANGED THIS EVENING WHICH WAS A DIFFICULT START WHICH DID DELAY LR INFUSION START THIS EVENING. OTHERWISE THERE ARE NO ACUTE CHANGES TO DISCUSS THIS SIFT
[2022-10-11 04:52] LABS: Hematocrit 28.1 % (33.0-51.0); Hemoglobin 9.1 g/dL (11.5-16.0); Mean Corpuscular HGB 28.2 pg (26.0-34.0); Mean Corpuscular HGB Conc 32.4 g/dL (31.5-36.5); Mean Corpuscular Volume 87 fL (80-100); Mean Platelet Volume 10.3 fL (9.1-12.4); Platelet Count 138 K/mm3 (150-400); RDW Coefficient Variation 14.5 % (11.7-14.2); RDW Standard Deviation 46.7 fL (35.1-46.3); Red Blood Cell Count 3.23 M/mm3 (3.80-5.20); White Blood Cell Count 16.51 K/mm3 (4.00-11.30)
--- NOTE | 2022-10-11 05:11 | NUR ---
SHIFT SUMMARY: Patient had an uneventful night. Slept soundly, no complaints of pain/discomfort. Remains on Hi-flow oxygen at 50L and 90% FIO2. Attempted to wean fio2 down to 80%, but she desats occasionally to 88%, so FIO2 was titrated back up to 90%. Left forearm IV infiltrated last night, removed and powerglide placed by Gem SINGH.
[2022-10-11 05:13] LABS: Albumin, Blood 2.4 g/dL (3.4-5.0); Albumin/Globulin Ratio 0.6 (0.8-1.8); Bilirubin, Direct 0.1 mg/dL (0.0-0.3); Bilirubin, Indirect 0.3 mg/dL (0.1-0.7); Bilirubin, Total 0.4 mg/dL (0.1-1.0); Bun/Creatinine Ratio 27.3 (12.0-20.0); Calcium, Blood 8.9 mg/dL (8.5-10.1); Creatinine, Blood 1.5 mg/dL (0.40-1.00); Globulin, Blood 3.7 g/dL (2.2-4.0); Magnesium, Blood 2.2 mg/dL (1.6-2.4); Potassium, Blood 4.2 mmol/L (3.5-5.5); Total Protein, Blood 6.1 g/dL (6.4-8.2)
--- NOTE | 2022-10-11 18:31 | NUR ---
PT'S O2 NEEDS HAVE REMAINED LARGELY UNCHANGED DURING THIS SHIFT. PT WITH CONTINUED NAUSEA THIS SHIFT THAT LEAD TO DR CARLSON HOLDING PO MEDS FOR THIS SHIFT, PT DID RECIEVE 2 DOSES OF PHENERGAN AND THEN BEGAN TO HAVE LEG TWITCHING AND RESTLESSNESS, DR CARLSON THEN ORDERED ATIVAN FOR NAUSEA. PT IS UPDATED THAT ORAL MEDS WILL BE HELD THIS SHIFT. NO BEDS AVAILABLE AT [facility] FOR TODAY. VSS.
[2022-10-12 04:53] LABS: BASOPHILS ABSOLUTE AUTO 0.04 K/mm3 (0.00-0.23); BASOPHILS PERCENT AUTO 0 % (0-2); EOSINOPHILS ABSOLUTE AUTO 0.86 K/mm3 (0.00-0.68); EOSINOPHILS PERCENT AUTO 5 % (0-6); Hematocrit 29.7 % (33.0-51.0); Hemoglobin 9.4 g/dL (11.5-16.0); IMMATURE GRAN ABSOLUTE AUTO 0.41 K/mm3 (0.00-0.10); IMMATURE GRAN PERCENT AUTO 2 % (0-1); LYMPHOCYTES ABSOLUTE AUTO 3.37 K/mm3 (0.84-5.20); LYMPHOCYTES PERCENT AUTO 20 % (21-46); MONOCYTES ABSOLUTE AUTO 0.81 K/mm3 (0.16-1.47); MONOCYTES PERCENT AUTO 5 % (4-13); Mean Corpuscular HGB 27.6 pg (26.0-34.0); Mean Corpuscular HGB Conc 31.6 g/dL (31.5-36.5); Mean Corpuscular Volume 87 fL (80-100); Mean Platelet Volume 10.6 fL (9.1-12.4); NEUTROPHILS PERCENT AUTO 68 % (41-73); Platelet Count 140 K/mm3 (150-400); RDW Coefficient Variation 14.5 % (11.7-14.2); RDW Standard Deviation 46.5 fL (35.1-46.3); Red Blood Cell Count 3.41 M/mm3 (3.80-5.20); White Blood Cell Count 17.29 K/mm3 (4.00-11.30)
[2022-10-12 05:14] LABS: Bun/Creatinine Ratio 25.6 (12.0-20.0); Calcium, Blood 8.5 mg/dL (8.5-10.1); Creatinine, Blood 1.29 mg/dL (0.40-1.00); Potassium, Blood 3.8 mmol/L (3.5-5.5)
--- NOTE | 2022-10-12 06:19 | NUR ---
SHIFT SUMMARY: PT A&OX4. REPORTS IMPROVED SOB DURING THIS SHIFT. RESPIRTIONS TACHYPNIC AT REST BUT NOT IN DISTRESS. O2 SATS 96% ON AIRVO WITH OCCASIONAL DESATURTIONS TO 88% DEPENDING ON POSITION, RESATURTION OCCURS QUICKLY. DENIES ANY CHEST PAIN, HR 80'S IN SR. PT HAS DENIED ANY NAUSEA DURING THIS SHIFT. ABLE TO TAKE EVENING MEDICATIONS FOR ORGAN TRANSPLANT WITHOUT ANY NAUSEA. NO ACUTE CHANGES OF STATUES DURING THIS THIS.
--- NOTE | 2022-10-12 09:05 | NUR ---
report to Rosy SINGH at [facility]
== END 2022-10-12 08:30 | disposition short-term general hospital (02) | DRG 205 ==
LOC: ER 15:32 → MEDS 19:49 → PCU 19:49 → SURS 20:06 → PCU 10-07 16:32
PROVIDERS: Internal Medicine; Internal Medicine Critical Care Medicine; Student in an Organized Health Care Education/Training Program; ADMIT Internal Medicine
PROC: XW033E5 Introduction of Remdesivir Anti-infective into Peripheral Vein, Percutaneous Approach, New Technology Group 5 (ICD-10-PCS; principal; 2022-10-06)
PROC: 3E0333Z Introduction of Anti-inflammatory into Peripheral Vein, Percutaneous Approach (ICD-10-PCS; 2022-10-06)
PROC: XW0DXM6 Introduction of Baricitinib into Mouth and Pharynx, External Approach, New Technology Group 6 (ICD-10-PCS; 2022-10-06)
PROC: 4A133R1 Monitoring of Arterial Saturation, Peripheral, Percutaneous Approach (ICD-10-PCS; 2022-10-06)
PROC: 5A0955A Assistance with Respiratory Ventilation, Greater than 96 Consecutive Hours, High Flow/Velocity Cannula (ICD-10-PCS; 2022-10-06)
DX: T86.812 Lung transplant infection (principal); J12.82 Pneumonia due to coronavirus disease 2019; U07.1 COVID-19; J96.01 Acute respiratory failure with hypoxia; E84.9 Cystic fibrosis, unspecified; D84.9 Immunodeficiency, unspecified; K90.1 Tropical sprue; E11.9 Type 2 diabetes mellitus without complications; K52.9 Noninfective gastroenteritis and colitis, unspecified; F41.9 Anxiety disorder, unspecified; Z88.0 Allergy status to penicillin; Z88.8 Allergy status to other drugs, medicaments and biological substances; Z88.1 Allergy status to other antibiotic agents; Z88.2 Allergy status to sulfonamides; Z91.018 Allergy to other foods; Z79.899 Other long term (current) drug therapy; Z79.52 Long term (current) use of systemic steroids; Z79.4 Long term (current) use of insulin; Z79.2 Long term (current) use of antibiotics; Z79.891 Long term (current) use of opiate analgesic; Z90.49 Acquired absence of other specified parts of digestive tract; Z98.890 Other specified postprocedural states; Z97.5 Presence of (intrauterine) contraceptive device; Z87.19 Personal history of other diseases of the digestive system; Z92.25 Personal history of immunosuppression therapy
CPT/HCPCS: 36415; 71045; 71260; 80048; 80053; 80069; 80076; 80197; 82375; 82947; 83605; 83735; 83880; 84100; 84145; 85025; 85027; 85379; 87040; 87496; 93005; 93010; 94640; 94664; 94762; 96365; 96375; 99285-25; A9270; C9399; J0248; J1100; J1200; J1650; J1815; J1940; J1956; J2060; J2185; J2550; J3370; J3480; J7050; J7120; J7507; J7517; J7518; Q9967

== ENCOUNTER → 2023-01-05 | Outpatient (CLI) | payer OTHER ==
[~2023-01-05] MED LIST changes: +ALPR.25 PO; +B COMPLEX FORM0.4 MG PO; +Diflucan100 MG PO; +FAMO20; +INSULANI SC; +MELATONIN5 M1 PO; +MIRT15 PO; +MONT10T PO; +MULTIPLE VITAM1 EACH PO; +PRAZ5 PO; +TRIKAFTA 100/51 EACH PO
== END | disposition home or self-care (01) ==
LOC: LAB SHORT 15:00 → LAB 15:00
DX: R31.9 Hematuria, unspecified (principal)
CPT/HCPCS: 87086